=== PATIENT | male | born 1985 | race Caucasian/White ===

== ENCOUNTER 2020-06-18 06:04 | Inpatient (IN) | payer BC ==
[2020-06-16 15:56] VITALS: BMI 27.6
[2020-06-18] MEDS ORDERED: Midazolam HCl 2 mg/2 ml Vial ONE (06:11)
[2020-06-18] MEDS ORDERED: Fentanyl 100 MCG/2 ML VIAL ONE ×2 (06:11→08:42)
[2020-06-18] MEDS ORDERED: HYDROcodone/Acetaminophen 10/325 mg Tablet PO PRN (07:12)
[2020-06-18] MEDS ORDERED: Enoxaparin Sodium 30 MG/0.3 ML SYRINGE SC SCH (07:15)
[2020-06-18] MEDS ORDERED: Bupivacaine HCl 0.5%/Epinephrine 1:200,000/PF 30 ml Vial ONE (07:39)
[2020-06-18] MEDS ORDERED: Vancomycin 1.5 GRAM/300 ML BAG ONE (07:49)
[2020-06-18] MEDS ORDERED: Ondansetron HCl/PF 4 MG/2 ML Vial IVP PRN (08:20)
[2020-06-18] MEDS ORDERED: Promethazine HCl 25 MG/ML VIAL SLOW IVP PRN (08:20)
[2020-06-18] MEDS ORDERED: Promethazine HCl 25 MG/ML VIAL IM PRN (08:20)
[2020-06-18] MEDS ORDERED: Dexamethasone 20 MG/5 ML VIAL ONE (09:46)
[2020-06-18] MEDS ORDERED: PROPOFOL 200 MG/20 ML VIAL ONE (09:46)
[2020-06-18] MEDS ORDERED: Ondansetron PF 4 MG/2 ML Vial ONE (09:46)
[2020-06-18] MEDS ORDERED: Lidocaine 1% PF 5 ML VIAL ONE (09:46)
[2020-06-18] MEDS: Escitalopram Oxalate 10 mg Tablet PO SCH (09:58)
[2020-06-18] MEDS: Vancomycin 1.5 GM in Premix Bag 1 BAG IVPB SCH ×2 (09:58→19:59)
--- NOTE | 2020-06-18 11:01 | OP ---
DATE OF PROCEDURE: 06/18/2020 TITLE OF PROCEDURE: Left knee prepatellar bursectomy. PREOPERATIVE DIAGNOSIS: Prepatellar bursitis, infectious. POSTOPERATIVE DIAGNOSIS: Prepatellar bursitis, infectious. SPECIMEN: Synovial tissue, sent for culture, as well as fluid. DESCRIPTION OF PROCEDURE: The patient was taken to the operating room where general anesthesia was induced. Left leg was prepped and draped in the usual sterile fashion. After exsanguination, tourniquet was inflated to 300 mmHg. I made a lateral incision over his draining wound and also made a small medial counter incision, dissected down through subcutaneous tissue to the fluid pocket and I evacuated fluid. There was quite a bit of inflamed synovial tissue, which was removed using rongeurs and sharp dissection. Hemostasis was obtained as needed. Irrigation was performed. Tourniquet was released. The wound was packed open with Iodoform gauze. Sterile dressing was applied. Job ID: [id number]
[2020-06-18] MEDS: HYDROcodone/Acetaminophen 10/325 mg Tablet PO PRN ×3 (11:22→20:06)
[2020-06-18] MEDS: CEFAZOLIN 2 GM in Premix Bag 1 BAG IVPB SCH ×2 (14:28→23:09)
[2020-06-19] MEDS: CEFAZOLIN 2 GM in Premix Bag 1 BAG IVPB SCH (06:06)
[2020-06-19] MEDS: Escitalopram Oxalate 10 mg Tablet PO SCH (08:27)
[2020-06-19] MEDS: Vancomycin 1.5 GM in Premix Bag 1 BAG IVPB SCH (09:55)
[2020-06-19] MEDS: HYDROcodone/Acetaminophen 10/325 mg Tablet PO PRN (10:04)
[2020-06-19 12:00] VITALS: BP 144/83; TEMP 98.2
== END 2020-06-19 12:20 | disposition home or self-care (01) | DRG 502 ==
LOC: SURG A 06:04 → INTOOBSV 06:04 → SURG A 09:32 → EDSTATUS 14:21 → OBSVTOIN 06-19 09:36
PROVIDERS: ADMIT Orthopaedic Surgery; ATTEND Orthopaedic Surgery
PROC: 0MBP0ZZ Excision of Left Knee Bursa and Ligament, Open Approach (ICD-10-PCS; principal; 2020-06-18)
DX: M71.162 Other infective bursitis, left knee (principal); Z90.49 Acquired absence of other specified parts of digestive tract; Z98.890 Other specified postprocedural states
CPT/HCPCS: 87070; 87077; 87186; 87205; J0670; J0690; J1100; J1650; J2250; J2405; J2704; J3010; J3370